=== PATIENT | male | born 1955 | race Caucasian/White ===

== ENCOUNTER 2024-04-08 13:04 | Inpatient (IN) | payer MEDICARE, MEDICAID ==
[~2024-04-08] VITALS: Ht 177.8 cm; Wt 125.2 kg
[2024-04-08 22:00] VITALS: BP 145/92; PULSE 117; RESP 19; TEMP 36.418
[2024-04-09 04:00] VITALS: BP 140/91; PULSE 72; RESP 19; TEMP 36.50292; O2SAT 97
[2024-04-09] MEDS ORDERED: SENN-22 PO (05:27)
[2024-04-09] MEDS ORDERED: TOPUD PO (05:27)
[2024-04-09] MEDS ORDERED: ALBU6.7H15 IH (05:27)
[2024-04-09] MEDS ORDERED: ENOX40SY27 SQ (05:27)
[2024-04-09] MEDS ORDERED: DIVA250T4 PO (05:27)
[2024-04-09] MEDS ORDERED: PANT40SU PO (05:27)
[2024-04-09] MEDS ORDERED: QUET25TA PO (05:27)
[2024-04-09] MEDS ORDERED: MOM PO (05:27)
[2024-04-09] MEDS ORDERED: OLAN7.5T3 PO (05:27)
[2024-04-09] MEDS ORDERED: TAMS-11 PO (05:27)
[2024-04-09] MEDS ORDERED: DOCU-138 PO (05:27)
[2024-04-09] MEDS ORDERED: ASPI-1497 PO (05:27)
[2024-04-09] MEDS ORDERED: MELA3TAB40 PO (05:27)
[2024-04-09] MEDS ORDERED: LEVO75TA PO (05:27)
[2024-04-09] MEDS ORDERED: PSYL0.4C2 PO (05:27)
[2024-04-09] MEDS ORDERED: BO1 TP (05:27)
[2024-04-09] MEDS ORDERED: DOXA2TAB2 PO (05:27)
[2024-04-09] MEDS ORDERED: BISA-81 PO (05:27)
[2024-04-09] MEDS ORDERED: METO-385 PO (05:27)
[2024-04-09] MEDS ORDERED: DOCUSATE SODIUM 100MG CAPSULE PO PRN (07:00)
[2024-04-09] MEDS ORDERED: ACETAMINOPHEN 325MG TABLET PO PRN (07:00)
[2024-04-09] MEDS ORDERED: MAGNESIUM/ALUMINUM HYDROXIDE/SIMETHICONE 30ML UDC PO PRN (07:00)
[2024-04-09] MEDS: DEXT 5%/LACTATED RINGERS 1,000 ML IV SCH (07:00)
[2024-04-09] MEDS ORDERED: IPRATROPIUM/ALBUTEROL 0.5-3(2.5)MG/3ML NEB NEB PRN (07:00)
[2024-04-09] MEDS ORDERED: GUAIFENESIN 200MG/10ML SUGAR FREE UDC PO PRN (07:00)
[2024-04-09] MEDS ORDERED: ONDANSETRON HCL 4MG/2ML INJ IV PRN (07:00)
[2024-04-09] MEDS ORDERED: ENOXAPARIN 40MG/0.4ML SYR SUBCUT SCH (07:00)
[2024-04-09] MEDS ORDERED: NITROGLYCERIN 0.4MG TABLET SL SL PRN (07:00)
[2024-04-09] MEDS ORDERED: CLONIDINE 0.1MG TABLET PO PRN (07:00)
[2024-04-09] MEDS: LEVOTHYROXINE SODIUM 75MCG TABLET PO SCH (07:10)
[2024-04-09] MEDS: PANTOPRAZOLE SODIUM 40 MG/VIAL IV SCH (08:46)
[2024-04-09] MEDS: TAMSULOSIN HCL 0.4MG SR CAPSULE PO SCH (08:47)
[2024-04-09] MEDS: HALOPERIDOL LACTATE 5MG/ML VIAL IM PRN (09:28)
[2024-04-09] MEDS ORDERED: KETOROLAC 15MG/ML VIAL IV PRN (14:00)
[2024-04-09 20:00] VITALS: RESP 18
[2024-04-09] MEDS: QUETIAPINE FUMARATE 50MG TABLET PO SCH (20:50)
[2024-04-10] VITALS (7 sets, daily range): BP systolic 111–145; BP diastolic 79–96; PULSE 95–100; RESP 18–20; TEMP 36.33624–36.55848; O2SAT 94–99
[2024-04-10] MEDS: ZOLPIDEM TARTRATE 5MG TABLET PO PRN (00:31)
[2024-04-10] MEDS: ACETAMINOPHEN 325MG TABLET PO PRN (00:31)
[2024-04-10 06:52] LABS: CALCIUM 9.8 mg/dL (8.7-10.4); CARBON DIOXIDE 24 mEq/L (21-32); CHLORIDE 103 mEq/L (98-107); POTASSIUM 3.7 mEq/L (3.5-5.1); SODIUM 136 mEq/L (136-145)
[2024-04-10 06:57] LABS: CREATININE 1.4 mg/dL (0.6-1.3); GLUCOSE 83 mg/dL (70-105); UREA NITROGEN BLOOD 21 mg/dL (9-23)
[2024-04-10 06:59] LABS: PHOSPHORUS 4.2 mg/dL (2.5-4.9)
[2024-04-10 07:15] LABS: HEMATOCRIT. 31.8 % (42.0-52.0); HEMOGLOBIN. 10.3 g/dL (14.0-18.0); MEAN CORPUSCULAR HEMOGLOBIN 26.9 pg (28.0-32.0); MEAN CORPUSCULAR HGB CONC 32.4 g/dL (31.0-37.0); MEAN CORPUSCULAR VOLUME 83.1 fL (80.0-94.0); MEAN PLATELET VOLUME 7.9 fl (7.4-10.4); PLATELET 368 x1000/uL (130-400); RED BLOOD CELL COUNT 3.83 mill/uL (4.7-6.1); RED CELL DISTRIBUTION WIDTH 18.6 % (11.6-14.6)
[2024-04-10 07:28] LABS: DIFFERENTIAL COMMENT 1
[2024-04-10 11:52] LABS: PLATELET ESTIMATE NORMAL
[2024-04-10 12:04] LABS: ANISOCYTOSIS 2+
[2024-04-10 12:57] LABS: BG BASE EXCESS -0.7 mmol/L (-2.0-2.0); BG CARBOXYHEMOGLOBIN 0.5 % (0.5-1.5); BG DEOXYHEMOGLOBIN 5.4 % (0.0-5.0); BG FRACTION INSPIRED OXYGEN 21; BG HCO3 ACT 24.6 mmol/L (22.0-26.0); BG METHEMOGLOBIN 0.3 % (0.0-1.5); BG OXYGEN SATURATION 94.6 % (92.0-98.5); BG OXYHEMOGLOBIN 93.8 % (94.0-97.0); BG PCO2 43.1 mmHg (35.0-45.0); BG PH 7.374 (7.350-7.450); BG PO2 72.2 mmHg (75.0-100.0); BG SAMPLE SITE RIGHT RADIAL; BG TOTAL HEMOGLOBIN 10.1 g/dL (12.0-18.0); BG VENT MODE ROOM AIR
[2024-04-10] MEDS: ENOXAPARIN 30MG/0.3ML SYR SUBCUT SCH (14:03)
[2024-04-11] MEDS ORDERED: FAMOTIDINE 20MG/2ML VIAL IV SCH (09:00)
== END 2024-04-10 22:27 | disposition short-term general hospital (02) | DRG 728 ==
LOC: 8WST 22:39 → 6WST 04-09 23:39
PROVIDERS: ADMIT Internal Medicine; ATTEND Internal Medicine
DX: N41.2 Abscess of prostate (principal); J44.9 Chronic obstructive pulmonary disease, unspecified; F39 Unspecified mood [affective] disorder; F20.9 Schizophrenia, unspecified; E03.9 Hypothyroidism, unspecified; K21.9 Gastro-esophageal reflux disease without esophagitis; N13.9 Obstructive and reflux uropathy, unspecified
CPT/HCPCS: 36415; 36600; 71045; 80048; 82375; 82805; 83735; 84100; 85025; A6261; J1630; J1650; J2470; J7121